=== PATIENT | male | born 1980 | race Caucasian/White ===

== ENCOUNTER 2020-11-22 18:23 | Outpatient (REF) | payer MEDICAID, SELFPAY ==
[2020-11-22 16:26] LABS: HCT 46.5 % (40.0-50.0); HGB 15.2 g/dL (13.5-17.5); MCH 28.9 pg (27.0-33.0); MCHC 32.7 % (32.0-36.0); MCV 88.4 fL (80-95); MPV 9.9 fL (8.0-11.0); Platelet Count 291 10^3/uL (130-400); RBC 5.26 10^6/uL (4.36-5.78); RDW 12.1 % (11.8-14.1); RDW-SD 39.3 fL; WBC 8.82 10^3/uL (4.4-10.8)
[2020-11-22 16:38] LABS: ALT 48 U/L (16-63); AST 20 U/L (15-37); Albumin 3.5 g/dL (3.4-5.0); Alkaline Phosphatase 86 U/L (46-116); Anion Gap 6.8 mmol/L (3-11); BUN 13 mg/dL (7-18); Bilirubin, Total 0.5 mg/dL (0.2-1.0); CO2 29.2 mmol/L (21.0-32.0); Calcium 9.3 mg/dL (8.5-10.1); Calculated LDL 149 mg/dL (<100); Chloride 102 mmol/L (98-107); Cholesterol 210 mg/dL (<200); Glucose 137 mg/dL (74-106); HDL Cholesterol 37 mg/dL (40-60); Potassium 4.3 mmol/L (3.5-5.1); Sodium 138 mmol/L (136-145); Total Protein 7.8 g/dL (6.4-8.2); Triglyceride 122 mg/dL (<150)
[2020-11-22 16:59] LABS: Hemoglobin A1C 6.1 % (<5.7)
== END 2020-11-22 18:24 | disposition home or self-care (01) ==
LOC: NCHCN 18:23
PROVIDERS: Visit Provider Physician Assistant
DX: I10 Essential (primary) hypertension (principal); R73.03 Prediabetes; E78.5 Hyperlipidemia, unspecified
CPT/HCPCS: 80053; 80061; 85027; 83036

== ENCOUNTER 2021-07-24 14:58 | Outpatient (REF) | payer MEDICAID, SELFPAY ==
[2021-07-24 19:28] LABS: Hemoglobin A1C 6.6 % (<5.7)
== END 2021-07-24 14:59 | disposition home or self-care (01) ==
LOC: NCHCN 14:58
PROVIDERS: Visit Provider Physician Assistant
DX: R73.03 Prediabetes (principal)
CPT/HCPCS: 83036

== ENCOUNTER → 2021-11-22 01:03 | Outpatient (CLI) | payer OTHER, SELFPAY ==
--- NOTE | 2021-11-22 12:30 | DI.RAD_ITS ---
Exam(s) XR HIP RT COMPLETE AP PELVIS EXAM: XR HIP RT COMPLETE AP PELVIS CLINICAL HISTORY: DISABILITY DETERMINATION, Z02.71;RT HIP PAIN; 2-3 VIEWS, [id number] TECHNIQUE: COMPARISON: No exams were available for comparison FINDINGS: Three views were obtained. There is mild narrowing of cartilaginous joint space of right and left hi p superiorly. There are mild changes of subchondral sclerosis and mild marginal osteophyte formation of the acetabula bilaterally. No other significant bony or soft tissue abnormality seen. IMPRESSION: Mild DJD both hips. The SI joints appear intact bilaterally. RADIATION DOSE DELIVERED: Total DLP
--- NOTE | 2021-11-22 12:30 | DI.RAD_ITS ---
Exam(s) XR LUMBAR SPINE AP, LAT EXAM: XR LUMBAR SPINE AP, LAT CLINICAL HISTORY: DISABILITY DETERMINATION, Z02.71; LBP; 2-3 VIEWS, [id number] TECHNIQUE: COMPARISON: No exams were available for comparison FINDINGS: Three views were obtained. The intervertebral disc spaces are well maintained. No significant bony abnormality seen. No evidence of spondylolysis or spondylolisthesis. IMPRESSION: Negative examination of the lumbar spine. RADIATION DOSE DELIVERED: Total DLP
== END ==
PROVIDERS: Visit Provider Pediatrics Pediatric Rheumatology
DX: M54.50 Low back pain, unspecified (principal); M16.0 Bilateral primary osteoarthritis of hip; Z02.71 Encounter for disability determination
CPT/HCPCS: 72100; 73502

== ENCOUNTER 2022-03-22 14:43 | Outpatient (REF) | payer MEDICAID, SELFPAY ==
[2022-03-22 19:55] LABS: ALT 48 U/L (16-63); AST 33 U/L (15-37); Albumin 3.7 g/dL (3.4-5.0); Alkaline Phosphatase 61 U/L (46-116); BUN 12 mg/dL (7-18); Bilirubin, Total 0.5 mg/dL (0.2-1.0); CREATININE 0.9 mg/dL (0.70-1.30); Calcium 9.4 mg/dL (8.5-10.1); Calculated LDL 86 mg/dL (<100); Chloride 101 mmol/L (98-107); Cholesterol 143 mg/dL (<200); Estimated GFR 109.36 (mL/min/1.73m2); Glucose 106 mg/dL (74-106); HDL Cholesterol 41 mg/dL (40-60); Sodium 138 mmol/L (136-145); Total Protein 8.5 g/dL (6.4-8.2); Triglyceride 81 mg/dL (<150)
[2022-03-23 22:38] LABS: Albumin ug/mg Crea 26 (<30); Albumin, Ur 6.2 mg/dL (See Note); Creatinine, Ur 239.1 mg/dL (See Note)
[2022-03-24 14:11] LABS: HIV-1/2 Ag & Ab Screen Negative (Negative)
[2022-03-25 09:28] LABS: Hepatitis C Ab w Rflx HCV PCR Negative (Negative)
== END 2022-03-22 14:44 | disposition home or self-care (01) ==
LOC: NCHCN 14:43
PROVIDERS: Visit Provider Physician Assistant
DX: E78.5 Hyperlipidemia, unspecified (principal); Z11.59 Encounter for screening for other viral diseases; E11.9 Type 2 diabetes mellitus without complications; Z11.4 Encounter for screening for human immunodeficiency virus [HIV]
CPT/HCPCS: 80053; 80061; 86803; 87389; 82043; 82570; 83036

== ENCOUNTER 2023-04-04 15:41 | Outpatient (REF) | payer SELFPAY ==
[2023-04-04 19:20] LABS: Microalb ug/mg Crea 61.5 ug/mg Cr
== END 2023-04-04 15:42 | disposition home or self-care (01) ==
LOC: NCHCN 15:41
PROVIDERS: Visit Provider Physician Assistant
DX: E11.9 Type 2 diabetes mellitus without complications (principal); E78.5 Hyperlipidemia, unspecified
CPT/HCPCS: 82043; 82570

== ENCOUNTER 2023-08-12 16:14 | Outpatient (REF) | payer BC, SELFPAY ==
[2023-08-12 16:03] LABS: Hemoglobin A1C 5.7 % (<5.7)
--- OUTSIDE RECORDS SUMMARY | 2023-08-12 16:25 | XMS_ITS | Continuity of Care Document ---
Author Name Unknown Organization [facility] Address [address] [place] [id number] Care Team Providers Care Geological Manager Name Role Phone JANESSA RITCHIE RPA Primary Care Physician Encounter [facility] [id number] Date(s): 04/23/23 - 04/23/23 [facility] [address] [place] [address]- Encounter Diagnosis Abscess of axillary region(Discharge Diagnosis) - 04/23/23 Discharge Disposition: Home or Self Care Attending Physician: Lita Granados MD Admitting Physician: Lita Granados MD Functional Status 04/23/23 Other exposure to Infectious Disease Non e Medications doxycycline hyclate 100 mg oral capsule 100 mg = 1 cap, Oral, BID, X 10 days, # 20 cap, 0 Refill(s), 05/03/23 1:58:00 PM CDT, Pharmacy: [facility] #[id number], 175.26, cm, 04/23/23 13:42:00 EDT, Height/Length Dosing, 154.22, kg, 04/23/23 13:42:00 EDT, Weight Dosing Start Date: 04/23/23 Stop Date: 05/03/23 Status: Ordered metFORMIN 500 mg oral tablet 0 Refill(s) Start Date: 04/23/23 Status: Ordered pregabalin 100 mg oral capsule 0 Refill(s) Start Date: 04/23/23 Status: Ordered rosuvastatin 10 mg oral tablet 0 Refill(s) Start Date: 04/23/23 Status: Ordered Results Orders for Microbiology Reports Name Date Wound Culture 04/23/23 Microbiology Reports TEST:Wound Culture STATUS:Order in Progress BODY SITE:Right Axilla SOURCE:Abscess COLLECTED DATE/TIME:04/23/23 1:24 PM STAIN REPORT Moderate White Blood Cells Moderate Gram Positive Cocci in pairs Vital Signs Most recent to oldest [Reference Range]: 1 Temperature Temporal Artery [36-38 Deg C ] 36.4 Deg C (04/23/23 1:26 PM) Peripheral Pulse Rate [60-100 bpm] 120 b pm *HI* (04/23/23 1:26 PM) Respiratory Rate [12-24 br/min] 20 br/mi n (04/23/23 1:26 PM) Blood Pressure [90-140/60-90 mmHg] 130/8 1mmHg (04/23/23 1:26 PM) Weight 154.22 kg (04/23/23 1:26 PM) Weight Dosing 154.22 kg (04/23/23 1:42 PM) Height 175.260 cm (04/23/23 1:26 PM) Height/Length Dosing 175.260 cm (04/23/23 1:42 PM) Body Mass Index 50.000 kg/m2 (04/23/23 1:26 PM) Social History Social History Type Response Tobacco Never tobacco user T obacco Use:. Sex Hospital Discharge Instructions Patient Education 04/23/2023 13:59:42 Incision and Drainage, Care After Incision and Drainage, Care After This sheet gives you information about how to care for yourself after your procedure. Your health care provider may also give you more specific instructions. If you have problems or questions, contact your health care provider. What can I expect after the procedure? After the procedure, it is common to have: ??? Pain or discomfort around the incision site. ??? Blood, fluid, or pus (drainage) from the incision. ??? Redness and firm skin around the incision site. Follow these instructions at home: Medicines ??? Take mjqu-lgm-fnofrfp and prescription medicines only as told by your health care provider. ??? If you were prescribed an antibiotic medicine, use or take it as told by your health care provider. Do not stop using the antibiotic even if you start to feel better. Wound care Follow instructions from your health care provider about how to take care of your wound. Make sure you: ??? Wash your hands with soap and water before and after you change your bandage (dressing). If soap and water are not available, use hand premium auditor. ??? Change your dressing and packing as told by your health care provider. ??? If your dressing is dry or stuck when you try to remove it, moisten or wet the dressing with saline or water so that it can be removed without harming your skin or tissues. ??? If your wound is packed, leave it in place until your health care provider tells you to remove it. To remove the packing, moisten or wet the packing with saline or water so that it can be removedwithout harming your skin or tissues. ??? Leave stitches (sutures), skin glue, or adhesive strips in place. These skin closures may need to stay in place for 2 weeks or longer. If adhesive strip edges start to loosen and curl up, you maytrim the loose edges. Do not remove adhesive strips completely unless your health care provider tells you to do that. Check your wound every day for signs of infection. Check for: ??? More redness, swelling, or pain. ??? More fluid or blood. ??? Warmth. ??? Pus or a bad smell. If you were sent home with a drain tube in place, follow instructions from your health care provider about: ??? How to empty it. ??? How to care for it at home. General instructions ??? Rest the affected area. ??? Do not take baths, swim, or use a hot tub until your health care provider approves. Ask your health care provider if you may take showers. You may only be allowed to take sponge baths. ??? Return to your normal activities as told by your health care provider. Ask your health care provider what activities are safe for you. Your health care provider may put you on activity or liftingrestrictions. ??? The incision will continue to drain. It is normal to have some clear or slightly bloody drainage. The amount of drainage should lessen each day. ??? Do not apply any creams, ointments, or liquids unless you have been told to by your health careprovider. ??? Keep all follow-up visits as told by your health care provider. This is important. Contact a health care provider if: ??? Your cyst or abscess returns. ??? You have more redness, swelling, or pain around your incision. ??? You have more fluid or blood coming from your incision. ??? Your incision feels warm to the touch. ??? You have pus or a bad smell coming from your incision. ??? You have red streaks above or below the incision site. Get help right away if: ??? You have severe pain or bleeding. ??? You cannot eat or drink without vomiting. ??? You have a fever or chills. ??? You have redness that spreads quickly. ??? You have decreased urine output. ??? You become short of breath. ??? You have chest pain. ??? You cough up blood. ??? The affected area becomes numb or starts to tingle. These symptoms may represent a serious problem that is an emergency. Do not wait to see if the symptoms will go away. Get medical help right away. Call your local emergency services (911 in the [place] Do not drive yourself to the hospital. Summary ??? After this procedure, it is common to have fluid, blood, or pus coming from the surgery site. ??? Follow all home care instructions. You will be told how to take care of your incision, how to check for infection, and how to take medicines. ??? If you were prescribed an antibiotic medicine, take it as told by your health care provider. Donot stop taking the antibiotic even if you start to feel better. ??? Contact a health care provider if you have increased redness, swelling, or pain around your incision. Get help right away if you have chest pain, you vomit, you cough up blood, or you have shortness of breath. ??? Keep all follow-up visits as told by your health care provider. This is important. This information is not intended to replace advice given to you by your health care provider. Make sure you discuss any questions you have with your health care provider. Document Revised: 04/11/2022 Document Reviewed: 04/11/2022 [employer] Patient Education ?? 2022 [employer] 04/23/2023 13:59:40 Skin Abscess Skin Abscess A skin abscess is an infected area on or under your skin that contains a collection of pus and other material. An abscess may also be called a furuncle, carbuncle, or boil. An abscess can occur in oron almost any part of your body. Some abscesses break open (rupture) on their own. Most continue to get worse unless they are treated. The infection can spread deeper into the body and eventually into your blood, which can make you feel ill. Treatment usually involves draining the abscess. What are the causes? An abscess occurs when germs, like bacteria, pass through your skin and cause an infection. This may be caused by: ??? A scrape or cut on your skin. ??? A puncture wound through your skin, including a needle injection or insect bite. ??? Blocked oil or sweat glands. ??? Blocked and infected hair follicles. ??? A cyst that forms beneath your skin (sebaceous cyst) and becomes infected. What increases the risk? This condition is more likely to develop in people who: ??? Have a weak body defense system (immune system). ??? Have diabetes. ??? Have dry and irritated skin. ??? Get frequent injections or use illegal IV drugs. ??? Have a foreign body in a wound, such as a splinter. ??? Have problems with their lymph system or veins. What are the signs or symptoms? Symptoms of this condition include: ??? A painful, firm bump under the skin. ??? A bump with pus at the top. This may break through the skin and drain. Other symptoms include: ??? Redness surrounding the abscess site. ??? Warmth. ??? Swelling of the lymph nodes (glands) near the abscess. ??? Tenderness. ??? A sore on the skin. How is this diagnosed? This condition may be diagnosed based on: ??? A physical exam. ??? Your medical history. ??? A sample of pus. This may be used to find out what is causing the infection. ??? Blood tests. ??? Imaging tests, such as an ultrasound, CT scan, or MRI. How is this treated? A small abscess that drains on its own may not need treatment. Treatment for larger abscesses may include: ??? Moist heat or heat pack applied to the area several times a day. ??? A procedure to drain the abscess (incision and drainage). ??? Antibiotic medicines. For a severe abscess, you may first get antibiotics through an IV and then change to antibiotics by mouth. Follow these instructions at home: Medicines ??? Take tojj-yjf-mvjqhpp and prescription medicines only as told by your health care provider. ??? If you were prescribed an antibiotic medicine, take it as told by your health care provider. Donot stop taking the antibiotic even if you start to feel better. Abscess care ??? If you have an abscess that has not drained, apply heat to the affected area. Use the heat source that your health care provider recommends, such as a moist heat pack or a heating pad. ??? Place a towel between your skin and the heat source. ??? Leave the heat on for 20???30 minutes. ??? Remove the heat if your skin turns bright red. This is especially important if you are unable to feel pain, heat, or cold. You may have a greater risk of getting burned. ??? Follow instructions from your health care provider about how to take care of your abscess. Makesure you: ??? Cover the abscess with a bandage (dressing). ??? Change your dressing or gauze as told by your health care provider. ??? Wash your hands with soap and water before you change the dressing or gauze. If soap and water are not available, use hand premium auditor. ??? Check your abscess every day for signs of a worsening infection. Check for: ??? More redness, swelling, or pain. ??? More fluid or blood. ??? Warmth. ??? More pus or a bad smell. General instructions ??? To avoid spreading the infection: ??? Do not share personal care items, towels, or hot tubs with others. ??? Avoid making skin contact with other people. ??? Keep all follow-up visits as told by your health care provider. This is important. Contact a health care provider if you have: ??? More redness, swelling, or pain around your abscess. ??? More fluid or blood coming from your abscess. ??? Warm skin around your abscess. ??? More pus or a bad smell coming from your abscess. ??? Muscle aches. ??? Chills or a general ill feeling. Get help right away if you: ??? Have severe pain. ??? See red streaks on your skin spreading away from the abscess. ??? See redness that spreads quickly. ??? Have a fever or chills. Summary ??? A skin abscess is an infected area on or under your skin that contains a collection of pus and other material. ??? A small abscess that drains on its own may not need treatment. ??? Treatment for larger abscesses may include having a procedure to drain the abscess and taking an antibiotic. This information is not intended to replace advice given to you by your health care provider. Make sure you discuss any questions you have with your health care provider. Document Revised: 04/08/2022 Document Reviewed: 04/08/2022 [employer] Patient Education ?? 2022 [employer]. Follow Up Care 04/23/2023 13:26:39 With:Tylenol/Motrin for Pain/Fever Relief Address:Unknown When:1 month With:JANESSA RITCHIE RPA Address: [address] [place] [phone] When:1 month Physician Emergency department Note * FLORENCIA Murphy: PERFORM Event Display: ED Note Physician Authored Date: [id number] HENRY GALLARDO :1980 Age:42 years Sex:Male Visit Date:04/23/2023 Primary Care Physician: JANESSA RITCHIE RPA Basic Information Time Seen: FLORENCIA Murphy / 04/23/2023 13:40 Chief Complaint Pt C/O abscess under RIGHT armpit. Started a few days ago, just getting bigger despite home remedies. No hx of abscesses. History Of Present Illness: Patient is a 42-year-old diabetic here for concern of a painful??lesion??of the right axilla. ??States he first noticed this 3 days ago and appeared to be an ingrown hair however since then it has increased in size??and has become more painful. ??There has been no??discharge from the area. ??He hasbeen afebrile.?? States that he had a pilonidal??abscess previously but no other axillary or inguinal??abscesses. Review of Systems: See HPI Physical Exam Vitals & Measurements T:??36.4?C ??(Temporal Artery)?? HR:??120??(Peripheral)?? RR:??20?? BP:??130/81?? SpO2:??96%?? HT:??175.260??cm?? WT:??154.22??kg?? BMI:??50.000?? O2 Therapy:??Room air?? General: Awake, alert and oriented. No acute distress. Well developed, hydrated and nourished. Appears stated age. Head: The head is normocephalic and atraumatic,?? Skin: Skin is warm, dry. There is a??3 cm oblong area fluctuance surrounded by a 6 cm??area of induration. ??Area is tender to palpation. ??No discharge expressed. ??No streaking.?? No tunneling or surrounding comedones present. Cardiac: The external chest is normal in appearance.?? Regular??rate. Respiratory:??Still without??deformity.?? No signs of respiratory distress. ??Regular rate. Medical Decision Making: Patient is a pleasant 42-year-old male here with concern of a right axillary abscess. ??Vitals obtained and reviewed. ??He is afebrile. ??On exam there is a single??abscesses present.?? Moderate areaof fluctuance with surrounding induration as described above. Abscess was I&D??as described. ??Patient tolerated the procedure well. ??Culture was??sent. Will??start empirically on doxycycline and wound care discussed. Procedure Procedure Name: Abscess I&D Locations: Right axilla PROCEDURE: The appropriate timeout was taken. The area was prepped??and draped.?? Local anesthesia was achieved using 5 cc of ??Lidocaine 2% without epinephrine. ??A small incision was made??at the center of the abscess with area of??most??fluctuance. ??A moderate amount of purulent discharge was expressed.?Approximately??4 cc.?? Ultras were obtained.?? Loculations??were taken down with??forceps. ??It??incision irrigated with??40 cc??of sterile saline. Estimated blood loss was less than??3 mL. A dressing was applied to the area and anticipatory guidance, as well as standard post-procedure care, was explained. Return precautions are given. The patient tolerated the procedure well without complications. Follow-up visit set for suture removal and evaluation of the laceration. No Qualifying Data Assessment/Plan 1.??Abscess of axillary region??L02.419 Will??start empirically on doxycycline and wound care discussed. ??Will monitor for any worsening of the surrounding cellulitis and return??to the emergency department with any concerns. Wound cultures pending. Ordered: Wound Culture, Abscess, Axilla R, Stat collect, ST - Stat, 04/23/23 15:36:00 EDT, Once, Nurse collect, Abscess of axillary region, Print Label ?? Orders: doxycycline hyclate 100 mg oral capsule, 100 mg = 1 cap, Oral, BID, X 10 days, # 20 cap, 0 Refill(s), 05/03/23 14:58:00 EDT, Pharmacy: [facility] #[id number], 175.26, cm, 04/23/23 13:42:00 EDT, Height/Length Dosing, 154.22, kg, 04/23/23 13:42:00 EDT, Weight Dosing Patient Education Incision and Drainage, Care After Skin Abscess Follow Up With When Contact Information Tylenol/Motrin for Pain/Fever Relief Within 1 month Additional Instructions: JANESSA RITCHIE RPA Within [address] [place] [phone] [phone] Additional Instructions: Medication Reconciliation New Prescription doxycycline (doxycycline hyclate 100 mg oral capsule)1 Capsules Oral (given by mouth) 2 times a dayfor 10 Days. Refills: 0. ?? Unchanged metFORMIN (metFORMIN 500 mg oral tablet) ?? pregabalin (pregabalin 100 mg oral capsule) ?? rosuvastatin (rosuvastatin 10 mg oral tablet) Problem List/Past Medical History Ongoing Morbid obesity Historical No qualifying data Allergies No active allergies Social History Electronic Cigarette/Vaping Electronic Cigarette Use: Never. Tobacco Never tobacco user Tobacco Use:. Electronically Signed on 04/23/23 04:52 PM FLORENCIA Murphy Emergency department Discharge instructions * FLORENCIA Murphy: PERFORM Event Display: ED Discharge Information Authored Date: [id number] HENRY GALLARDO:1980 Age:42 years Sex:Male Visit Date:04/23/2023 Primary Care Physician: JANESSA RITCHIE RPA Discharge Instructions We would like to thank you for allowing us to assist you with your healthcare needs. The following includes patient education materials and information regarding your injury/illness. Diagnosis from Today's Visit Abscess of axillary region Discharge Vitals Temperature??(Temporal Artery) 97.5 ??F (36.4 ??C) Heart Rate??(Peripheral) 120 Respiratory Rate?? 20 Blood Pressure?? 130/81?? Height?? 69.00 in (175.260 cm) Weight?? 340.06 lb (154.22 kg) BMI?? 50.000 Allergies No active allergies What to Do Next Instructions from Your Care Team Please continue with wound care as discussed. ??Keep the dressing on for 24 hours and then can replace with a bulky dressing thereafter.?? There is no wick in place so it will heal??from the inside??out. ??Please continue to monitor with taking pictures of the area daily if you note any recurrence of the abscess or worsening of the rash or pain in the area please return.?? I sent in a prescription of doxycycline??please take that twice a day for the next 10 days. ??Follow-up with PCP as needed. You Need to Schedule the Following Appointments Follow Up with??Tylenol/Motrin for Pain/Fever Relief When:??Within 1 month Follow Up with??JANESSA RITCHIE RPA When:??Within 1 month Where: [address] [place] [phone] You were treated today on an emergency basis; it may be esquivel to contact your primary care provider to notify them of your visit today. You may have been referred to your regular doctor or a specialist, please follow up as instructed. If your condition worsens or you can't get in to see the doctor, contact the Emergency Department. Medications What How Much When Instructions Next Dose New doxycycline (doxycycline hyclate 100 mg oral capsule) 1 Capsules Oral (given by mouth) 2 times a day Duration: 10 Days Pickup at [facility] #[id number] Unchanged metFORMIN (metFORMIN 500 mg oral tablet) Unchanged pregabalin (pregabalin 100 mg oral capsule) Unchanged rosuvastatin (rosuvastatin 10 mg oral tablet) Pharmacy Information [facility] #[id number]: [address] [place], [place] [phone] [employer] Incision and Drainage, Care After This sheet gives you information about how to care for yourself after your procedure. Your health care provider may also give you more specific instructions. If you have problems or questions, contact your health care provider. What can I expect after the procedure? After the procedure, it is common to have: ? Pain or discomfort around the incision site. ? Blood, fluid, or pus (drainage) from the incision. ? Redness and firm skin around the incision site. Follow these instructions at home: Medicines ? Take ublq-zva-jyuzsfc and prescription medicines only as told by your health care provider. ? If you were prescribed an antibiotic medicine, use or take it as told by your health care provider.Do not stop using the antibiotic even if you start to feel better. Wound care Follow instructions from your health care provider about how to take care of your wound. Make sure you: ? Wash your hands with soap and water before and after you change your bandage (dressing). If soap and water are not available, use hand premium auditor. ? Change your dressing and packing as told by your health care provider. ? If your dressing is dry or stuck when you try to remove it, moisten or wet the dressing with salineor water so that it can be removed without harming your skin or tissues. ? If your wound is packed, leave it in place until your health care provider tells you to remove it. To remove the packing, moisten or wet the packing with saline or water so that it can be removed without harming your skin or tissues. ? Leave stitches (sutures), skin glue, or adhesive strips in place. These skin closures may need to stay in place for 2 weeks or longer. If adhesive strip edges start to loosen and curl up, you may trim the loose edges. Do not remove adhesive strips completely unless your health care provider tells you to do that. Check your wound every day for signs of infection. Check for: ? More redness, swelling, or pain. ? More fluid or blood. ? Warmth. ? Pus or a bad smell. If you were sent home with a drain tube in place, follow instructions from your health care provider about: ? How to empty it. ? How to care for it at home. General instructions ? Rest the affected area. ? Do not take baths, swim, or use a hot tub until your health care provider approves. Ask your healthcare provider if you may take showers. You may only be allowed to take sponge baths. ? Return to your normal activities as told by your health care provider. Ask your health care provider what activities are safe for you. Your health care provider may put you on activity or lifting restrictions. ? The incision will continue to drain. It is normal to have some clear or slightly bloody drainage. The amount of drainage should lessen each day. ? Do not apply any creams, ointments, or liquids unless you have been told to by your health care provider. ? Keep all follow-up visits as told by your health care provider. This is important. Contact a health care provider if: ? Your cyst or abscess returns. ? You have more redness, swelling, or pain around your incision. ? You have more fluid or blood coming from your incision. ? Your incision feels warm to the touch. ? You have pus or a bad smell coming from your incision. ? You have red streaks above or below the incision site. Get help right away if: ? You have severe pain or bleeding. ? You cannot eat or drink without vomiting. ? You have a fever or chills. ? You have redness that spreads quickly. ? You have decreased urine output. ? You become short of breath. ? You have chest pain. ? You cough up blood. ? The affected area becomes numb or starts to tingle. These symptoms may represent a serious problem that is an emergency. Do not wait to see if the symptoms will go away. Get medical help right away. Call your local emergency services (911 in the [place] Do not drive yourself to the hospital. Summary ? After this procedure, it is common to have fluid, blood, or pus coming from the surgery site. ? Follow all home care instructions. You will be told how to take care of your incision, how to checkfor infection, and how to take medicines. ? If you were prescribed an antibiotic medicine, take it as told by your health care provider. Do notstop taking the antibiotic even if you start to feel better. ? Contact a health care provider if you have increased redness, swelling, or pain around your incision. Get help right away if you have chest pain, you vomit, you cough up blood, or you have shortness of breath. ? Keep all follow-up visits as told by your health care provider. This is important. This information is not intended to replace advice given to you by your health care provider. Make sure you discuss any questions you have with your health care provider. Document Revised: 04/11/2022 Document Reviewed: 04/11/2022 [employer] Patient Education ?? 2022 [employer] Skin Abscess A skin abscess is an infected area on or under your skin that contains a collection of pus and other material. An abscess may also be called a furuncle, carbuncle, or boil. An abscess can occur in oron almost any part of your body. Some abscesses break open (rupture) on their own. Most continue to get worse unless they are treated. The infection can spread deeper into the body and eventually into your blood, which can make you feel ill. Treatment usually involves draining the abscess. What are the causes? An abscess occurs when germs, like bacteria, pass through your skin and cause an infection. This may be caused by: ? A scrape or cut on your skin. ? A puncture wound through your skin, including a needle injection or insect bite. ? Blocked oil or sweat glands. ? Blocked and infected hair follicles. ? A cyst that forms beneath your skin (sebaceous cyst) and becomes infected. What increases the risk? This condition is more likely to develop in people who: ? Have a weak body defense system (immune system). ? Have diabetes. ? Have dry and irritated skin. ? Get frequent injections or use illegal IV drugs. ? Have a foreign body in a wound, such as a splinter. ? Have problems with their lymph system or veins. What are the signs or symptoms? Symptoms of this condition include: ? A painful, firm bump under the skin. ? A bump with pus at the top. This may break through the skin and drain. Other symptoms include: ? Redness surrounding the abscess site. ? Warmth. ? Swelling of the lymph nodes (glands) near the abscess. ? Tenderness. ? A sore on the skin. How is this diagnosed? This condition may be diagnosed based on: ? A physical exam. ? Your medical history. ? A sample of pus. This may be used to find out what is causing the infection. ? Blood tests. ? Imaging tests, such as an ultrasound, CT scan, or MRI. How is this treated? A small abscess that drains on its own may not need treatment. Treatment for larger abscesses may include: ? Moist heat or heat pack applied to the area several times a day. ? A procedure to drain the abscess (incision and drainage). ? Antibiotic medicines. For a severe abscess, you may first get antibiotics through an IV and then change to antibiotics by mouth. Follow these instructions at home: Medicines ? Take [id number]-mapster and prescription medicines only as told by your health care provider. ? If you were prescribed an antibiotic medicine, take it as told by your health care provider. Do notstop taking the antibiotic even if you start to feel better. Abscess care ? If you have an abscess that has not drained, apply heat to the affected area. Use the heat source that your health care provider recommends, such as a moist heat pack or a heating pad. ? Place a towel between your skin and the heat source. ? Leave the heat on for 20???30 minutes. ? Remove the heat if your skin turns bright red. This is especially important if you are unable to feel pain, heat, or cold. You may have a greater risk of getting burned. ? Follow instructions from your health care provider about how to take care of your abscess. Make sure you: ? Cover the abscess with a bandage (dressing). ? Change your dressing or gauze as told by your health care provider. ? Wash your hands with soap and water before you change the dressing or gauze. If soap and water are not available, use hand premium auditor. ? Check your abscess every day for signs of a worsening infection. Check for: ? More redness, swelling, or pain. ? More fluid or blood. ? Warmth. ? More pus or a bad smell. General instructions ? To avoid spreading the infection: ? Do not share personal care items, towels, or hot tubs with others. ? Avoid making skin contact with other people. ? Keep all follow-up visits as told by your health care provider. This is important. Contact a health care provider if you have: ? More redness, swelling, or pain around your abscess. ? More fluid or blood coming from your abscess. ? Warm skin around your abscess. ? More pus or a bad smell coming from your abscess. ? Muscle aches. ? Chills or a general ill feeling. Get help right away if you: ? Have severe pain. ? See red streaks on your skin spreading away from the abscess. ? See redness that spreads quickly. ? Have a fever or chills. Summary ? A skin abscess is an infected area on or under your skin that contains a collection of pus and other material. ? A small abscess that drains on its own may not need treatment. ? Treatment for larger abscesses may include having a procedure to drain the abscess and taking an antibiotic. This information is not intended to replace advice given to you by your health care provider. Make sure you discuss any questions you have with your health care provider. Document Revised: 04/08/2022 Document Reviewed: 04/08/2022 Elsevier Patient Education ?? 2022 [employer] Patient/Anchor Operator Signature Patient Name:HENRY GALLARDO I have received this information and my questions have been answered. Patient/Anchor Operator Name: Patient/Anchor Operator Signature: Relationship to Patient: Witness Name/Signature: Date: Electronically Signed on: 04/23/2023 15:01 EDTSigned by:LOLITA Patient Care team information Care Team Personnel Name: JANESSA RITCHIE RPA Position: No Access Member Role: Primary Care Physician Address: Address: [address] [place], [place] [address] Name: FLORENCIA Murphy Position: Physician Member Role: Physician Address: Address: [address], [place] [address] Name: Amilcar Merino Position: Nurse Member Role: ED Nurse Care Team Related Persons Name: GALLITO SMYTH
[2023-08-12 16:45] LABS: ALT 31 U/L (16-63); AST 19 U/L (15-37); Albumin 3.9 g/dL (3.4-5.0); Alkaline Phosphatase 80 U/L (46-116); Anion Gap 9.4 mmol/L (3-11); BUN 14 mg/dL (7-18); Bilirubin, Total 0.5 mg/dL (0.2-1.0); CO2 28.6 mmol/L (21.0-32.0); CREATININE 0.9 mg/dL (0.70-1.30); Calculated LDL 187 mg/dL (<100); Chloride 103 mmol/L (98-107); Cholesterol 258 mg/dL (<200); Estimated GFR 108.01 (mL/min/1.73m2); Glucose 94 mg/dL (74-106); HDL Cholesterol 47 mg/dL (40-60); Potassium 3.8 mmol/L (3.5-5.1); Sodium 141 mmol/L (136-145); Total Protein 8.2 g/dL (6.4-8.2); Triglyceride 121 mg/dL (<150)
== END 2023-08-12 16:15 | disposition home or self-care (01) ==
LOC: NCHCN 16:14
PROVIDERS: PCP Physician Assistant; Visit Provider Physician Assistant
DX: I10 Essential (primary) hypertension (principal); E78.5 Hyperlipidemia, unspecified; E11.9 Type 2 diabetes mellitus without complications
CPT/HCPCS: 80053; 80061; 83036

== ENCOUNTER 2024-09-14 14:25 | Outpatient (REF) | payer OTHER, SELFPAY ==
[2024-09-14 15:31] LABS: Hemoglobin A1C 6.1 % (<5.7)
[2024-09-14 15:35] LABS: ALT 36 U/L (16-63); AST 21 U/L (15-37); Albumin 3.7 g/dL (3.4-5.0); Alkaline Phosphatase 69 U/L (46-116); Anion Gap 5.3 mmol/L (3-11); BUN 27 mg/dL (7-18); Bilirubin, Total 0.28 mg/dL (0.2-1.0); CO2 29.7 mmol/L (21.0-32.0); CREATININE 1.1 mg/dL (0.70-1.30); Calcium 9.4 mg/dL (8.5-10.1); Calculated LDL 86 mg/dL (<100); Chloride 108 mmol/L (98-107); Cholesterol 143 mg/dL (<200); Estimated GFR 84.37 (mL/min/1.73m2); Glucose 93 mg/dL (74-106); HDL Cholesterol 43 mg/dL (>or=40); Sodium 143 mmol/L (136-145); Total Protein 7.5 g/dL (6.4-8.2); Triglyceride 71 mg/dL (<150)
[2024-09-14 15:47] LABS: COMMENT (LAB VIEW ONLY) 87.28 mg/dL; Microalb ug/mg Crea 14.3 ug/mg Cr
== END 2024-09-14 14:26 | disposition home or self-care (01) ==
LOC: NCHCN 14:25
PROVIDERS: PCP Physician Assistant; Visit Provider Physician Assistant
DX: E78.5 Hyperlipidemia, unspecified (principal); E11.9 Type 2 diabetes mellitus without complications
CPT/HCPCS: 80053; 80061; 82043; 82570; 83036

== ENCOUNTER 2024-10-24 13:48 | Observation (INO) | payer OTHER, SELFPAY ==
[2024-10-24] VITALS (9 sets, daily range): BP systolic 92–118; BP diastolic 46–76; PULSE 63–112; RESP 15–20; TEMP 35.4–36.7; O2SAT 96–100
--- NOTE | 2024-10-24 14:00 | DI.RAD_ITS ---
Exam(s) XR CHEST 2V PA LATERAL EXAM: XR CHEST 2V PA LATERAL CLINICAL HISTORY: Chest pain. TECHNIQUE: 2D digital imaging was performed. COMPARISON: No exams were available for comparison FINDINGS: 2 views: Heart size is normal. The mediastinum is not widened. Right lung is clear. Slightly increased markings in the left lower lobe which either represent vascu lar crowding or mild infiltrate. Less evident on the lateral view. No pleural effusions. No pulmon calderon edema. IMPRESSION: Left lower lobe findings as above, probably vascular crowding but cannot exclude mild infiltrate. Th ere are no pleural effusions. DATA REPOSITORY: RADIATION DOSE DELIVERED:
--- NOTE | 2024-10-24 14:00 | RT.EKG_ITS ---
APPROVED REPORT Exam: Resting ECG Reason for Exam: Chest pain Patient Location: E HR:97 bpm ECG Measurements Heart Rate 97 AXIS RI 160 P 42 QRSd 92 QRS 10 QT 338 T 35 QTc 431 Conclusion Sinus rhythm...normal P axis, V-rate 60- 99
--- NOTE | 2024-10-24 14:03 | W.ED.GENAD ---
Discharge Plan Disposition Patient Disposition: Admit to [facility] Condition: Stable Discharge Details Chief Complaint: Nk/Back Pain Clinical Impression: Acute kidney injury, Neck pain, Shoulder pain, bilateral, Dizziness Primary Care Provider: Rashaad London ED Provider: Ascencion Easley Home Meds and New Rx's Prescriptions: No Action sertraline 100 mg tablet 100 mg PO DAILY Patient Comments: TAKE 1 TABLET BY MOUTH EVERY DAY lisinopril 10 mg tablet 10 mg PO DAILY Patient Comments: TAKE 1 TABLET BY MOUTH EVERY DAY rosuvastatin 10 mg tablet 10 mg PO DAILY Patient Comments: TAKE 1 TABLET BY MOUTH EVERY DAY pregabalin 150 mg capsule 150 mg PO BID Patient Comments: TAKE 1 CAPSULE BY MOUTH TWICE DAILY Discharge Instructions Referrals: Rashaad London [Primary Care Provider] - 1 week HPI General Mode of arrival: ambulatory. Date/Time Provider Initiated Documentation: 10/24/24 13:51. Limitations to Documentation: no limitations. Information obtained by: family. HPI Narrative: This is a 44-year-old male history of diabetes, hypertension, hyperlipidemia, depression/anxiety, morbid obesity who is presenting with neck and shoulder pain. He has had neck and shoulder pain for the last few weeks. Worse with movement. Sometimes feels that shooting down into his shoulders. No reported trauma or injuries that he is aware of. No fevers or chills. No recent surgeries or procedures or instrumentation. No numbness tingling or weakness in the extremities. No bowel or bladder incontinence or retention. Over the last 2 to 3 days with this pain he has been getting associated dizziness. Has been consistently dizzy over this time. Still with this dizziness. He has no chest pain or shortness of breath. No abdominal pain nausea or vomiting. Says that he is taking medications for his blood pressure and hyperlipidemia as well as his depression anxiety but cannot name these medications for me. Says that he was taking metformin but it was not working and he is not taking it anymore. His primary care doctor tried to prescribe him Mounjaro but apparently his insurance would not cover it. Related Data Home Medications ?Medication ?Instructions ?Recorded ?Confirmed lisinopril 10 mg tablet 10 mg PO DAILY 10/24/24 10/24/24 pregabalin 150 mg capsule 150 mg PO BID 10/24/24 10/24/24 rosuvastatin 10 mg tablet 10 mg PO DAILY 10/24/24 10/24/24 sertraline 100 mg tablet 100 mg PO DAILY 10/24/24 10/24/24 Allergies Allergy/AdvReac Type Severity Reaction Status Date / Time No Known Allergies Allergy Unverified 10/24/24 13:58 General Stated Complaint: Nk/Back Pain RYAN: 3 Review of Systems Constitutional Constitutional: Denies chills, Denies fever(s) and Denies headache(s) Eyes Eyes: Denies change in vision ENT Ears, Nose, Mouth, and Throat: Denies headache(s), Reports neck pain and Denies odynophagia Cardiovascular Cardiovascular: Denies chest pain and Denies dyspnea Respiratory Respiratory: Denies dyspnea Gastrointestinal Gastrointestinal: Denies abdominal pain, Denies diarrhea, Denies nausea, Denies odynophagia and Denies vomiting Genitourinary Genitourinary: Denies dysuria Musculoskeletal Musculoskeletal: Reports neck pain Comments: Bilateral shoulder pain but right greater than left Integumentary/Breasts Skin/Breast: Denies changing lesions Neurologic Neurologic: Denies behavioral changes and Denies headache(s) Psychiatric Psychiatric: Denies behavioral changes Endocrine Endocrine: Denies heat intolerance Hematologic/Lymphatic Hematologic/Lymphatic: Denies lymphadenopathy Exam Const General: cooperative Nutritional Appearance: average body habitus Orientation: alert, awake and oriented x3 HENMT Head: normal to inspection Ears: external ears normal Mouth: moist mucous membranes Eyes Pupils: PERRL EOM: EOM intact bilaterally and No nystagmus Neck Neck: full ROM and no tracheal deviation Chest Chest: normal inspection of the chest Resp Auscultation: clear to auscultation bilaterally Cardio Rate: regular rate Rhythm: regular rhythm GI Inspection: normal to inspection Palpation: soft, no guarding, not rigid and nontender Back/Spine/Pelvis Back: No no CVA tenderness Cervical Spine: No cervical spinal tenderness Thoracic/Lumbar Spine: thoracic and lumbar spine normal to inspection, No thoracic spinal tenderness and No lumbar spinal tenderness Other: Full range of motion of the neck but does have pain with ranging the neck. No deformity or step-off noted on palpation. No midline tenderness. Pain primarily in the paraspinal muscles of the neck. Skin General skin exam: no rashes or lesions noted Neuro General: patient alert, patient awake and patient oriented x3 Cranial Nerves: CN's II-XI intact bilaterally, PERRL and no nystagmus Cognition: normal cognition Motor: muscle tone normal throughout and strength 5/5 throughout Sensory Exam: no sensory deficits noted Extrem General: normal to inspection, full ROM and capillary refill normal Other: Sensation and motor intact to the radial, ulnar, and median nerve distributions bilaterally. Palpable radial and ulnar pulses bilaterally. Compartments of the bilateral upper extremities are soft. Full range of motion of all joints of the bilateral upper extremities with no limitations. No obvious deformity and no tenderness to the extremities. Course Vital Signs Vital signs: Vital Signs Temperature 35.4 C L 10/24/24 13:53 Pulse 112 H 10/24/24 13:53 Respiratory Rate 20 10/24/24 13:53 Blood Pressure 103/49 L 10/24/24 13:53 Pulse Oximetry 100 10/24/24 13:53 Temperature 35.4 C L 10/24/24 13:53 Pulse 112 H 10/24/24 13:53 Respiratory Rate 20 10/24/24 13:53 Blood Pressure 103/49 L 10/24/24 13:53 Blood Pressure Position Sitting 10/24/24 13:53 Pulse Oximetry 100 10/24/24 13:53 Oxygen Delivery Method Room Air 10/24/24 13:53 Oxygen Flow Rate 0 10/24/24 13:53 Medical Decision Making 44-year-old male history of diabetes, hypertension, hyperlipidemia, morbid obesity, anxiety/depression who is now presenting with neck and shoulder pain. Likely musculoskeletal neck pain. No red flag symptoms for cord compression or spinal epidural abscess so no role for emergent MRI. No history of trauma warranting advanced imaging otherwise. Doubt arrhythmia or acute coronary syndrome but will check EKG and cardiac enzymes though if unremarkable we will not pursue the diagnosis further. Will get chest x-ray to look for pneumonia or pneumothorax. Will get broad labs to look for electrolyte or metabolic derangements that could be contributing. Will treat for musculoskeletal neck pain while awaiting initial testing and reevaluate. 4pm EKG sinus rhythm with no ischemic changes. Chest x-ray unremarkable. CBC unremarkable. Comprehensive metabolic panel showing a elevated creatinine and BUN. No hyperkalemia. No pulmonary edema on exam. Certainly no need for emergent dialysis. Unclear etiology for this patient's worsening renal function now with creatinine up to 4.3 and baseline at around 1.1 and labs with normal renal function almost exactly 1 month ago. He is on lisinopril which could be contributing. Considered urinary retention but bladder scan with postvoid residual was unremarkable. Added on CK. Added on additional urine studies. Do not think it represents UTI as he does not have any dysuria or frequency. Ultimately will need further evaluation for this acute kidney injury and worsening in his renal function. Spoke to Dr. Satinder Hernandez with the hospitalist team who is agreeable to admission. Care transitioned to the hospitalist team. Medical Records Medical records reviewed: Yes I reviewed the patient's medical records. Imaging Data Radiologic Study: Attestation: I personally reviewed and interpreted this imaging study as follows: Imaging: X-Ray (chest) My impression: Unremarkable Lab Data Lab results reviewed: Yes I reviewed the patient's lab results. Lab results narrative: Acute kidney injury. No hyperkalemia. No acidosis. Labs: Elevated creatinine. BUN also elevated. No hyperkalemia. No acidosis. ECG Data Attestation: I personally reviewed and interpreted this ECG (s) as follows: Interpretation: Sinus rhythm with rate in the 60s. Normal axis. Normal TN interval. No ST or T wave changes. Otherwise unremarkable EKG. Quality:SDOH Health Related Social Needs: No Data to Display PFSH All Active Problems (Updated 10/24/24 @ 15:09 by Ascencion Easley MD) Shoulder pain, bilateral (Acute) Neck pain (Acute) Social History Smoking risk assessment performed?: No PAWSS Have you Been Recently Intoxicated or Drunk Within the Last 30 days?: No Have you Ever Experienced Previous Episodes of Alcohol Withdrawal?: No Have you ever Experienced Withdrawal Seizures?: No Have you ever Experienced Delirium Tremens(DT)s?: No Have you ever undergone Alcohol Rehabilitation Treatment (i.e, inpt ot outpatient treatment programs)?: No Have you ever Experienced Blackouts?: No Have you ever Combined Alcohol with other Downers within the last 90 days?: No Have you ever Combined Alcohol with any other Substance of Abuse during the last 90 days?: No Positive Blood Alcohol level on Presentation? [PCS.BAL]: No Evidence of Increased Autonomic Activity (i.e. HR>120, tremor, sweating, agitation, nausea)?: No Result: 0
[2024-10-24] MEDS: Ketorolac 30 MG/ML VIAL IVP (14:34)
[2024-10-24] MEDS: Cyclobenzaprine 10 MG TAB PO (14:34)
[2024-10-24 14:39] LABS: Abs Immature Grans 0.04 10^3/uL (0.0-0.06); Absolute Eosinophil Count 0.09 10^3/uL (0.0-0.7); Absolute Lymphocyte Count 2.73 10^3/uL (1.2-3.4); Absolute Monocyte Count 0.87 10^3/uL (0.1-0.8); Basophils % 0.5 %; Eosinophils % 0.8 %; HCT 43.7 % (40.0-50.0); HGB 14.2 g/dL (13.5-17.5); Immature Grans % 0.4 %; Lymphocytes % 24.8 %; MCHC 32.5 % (32.0-36.0); MCV 89 fL (80-95); MPV 10.4 fL (8.0-11.0); Monocytes % 7.9 %; Neutrophils % 65.6 %; Platelet Count 248 10^3/uL (130-400); RBC 4.89 10^6/uL (4.36-5.78); RDW 13.4 % (11.8-14.1); RDW-SD 43.5 fL; WBC 11.02 10^3/uL (4.4-10.8)
[2024-10-24 14:40] LABS: Absolute Basophil Count 0.06 10^3/uL (0.0-0.2); Absolute Neutrophil Count 7.23 10^3/uL (1.2-6.7)
[2024-10-24 15:10] LABS: ALT 47 U/L (16-63); AST 54 U/L (15-37); Alkaline Phosphatase 73 U/L (46-116); Anion Gap 12.6 mmol/L (3-11); BUN 67 mg/dL (7-18); Bilirubin, Total 0.8 mg/dL (0.2-1.0); CO2 26.4 mmol/L (21.0-32.0); Calcium 9.1 mg/dL (8.5-10.1); Chloride 99 mmol/L (98-107); Estimated GFR 16.43 (mL/min/1.73m2); Glucose 95 mg/dL (74-106); Lipase 62 U/L (<78); NT-proBNP 12 pg/mL (<300); Sodium 138 mmol/L (136-145); Total Protein 8.7 g/dL (6.4-8.2); Troponin I 6 ng/L (<or=76)
[2024-10-24 15:13] LABS: CREATININE 4.3 mg/dL (0.70-1.30)
--- NOTE | 2024-10-24 15:24 | DI.VRAD_ITS ---
PROCEDURE INFORMATION: Exam: XR Chest Exam date and time: 10/24/2024 2:51 PM Age: 44 years old Clinical indication: Pain; Chest pressure TECHNIQUE: Imaging protocol: Radiologic exam of the chest. Views: 2 views. COMPARISON: No relevant prior studies available. FINDINGS: Lungs: Opacity in the left lower lobe may represent atelectasis or pneumonia.. Pleural spaces: Unremarkable. No pleural effusion. No pneumothorax. Heart/Mediastinum: Unremarkable. No cardiomegaly. Bones/joints: Unremarkable. IMPRESSION: Opacity in the left lower lobe may represent atelectasis or pneumonia.. Dictated and Authenticated by: Lottie Lock MD. Orderin Tracee Vegas MD
[2024-10-24 15:45] LABS: Lab Add On Test DONE
[2024-10-24 15:59] LABS: Hemoglobin A1C 6.3 % (<5.7)
--- NOTE | 2024-10-24 15:59 | W.PM.HP.N ---
Date of service: 10/24/24 Time of Service: 15:59 Assessment and Plan Assessment and plan (1) Acute kidney injury: Status: Acute Assessment and plan: UA pending, protein/creatinine ratio pending, urine creatinine and sodium added, FENA score 0.1% renal US for tomorrow post void bladder scan with no evidence of urinary retention hold nephrotoxic agents, lisinopril CPK elevated at 1600 continue IV hydration and monitoring cpk, kidney function closely renal diet for now, no electrolyte abnormalities. (2) Shoulder pain, bilateral: Status: Acute Assessment and plan: add CRP and sed rate ? consider polymyalgia rheumatica or vasculitis CPK elevated at 1600 apap and or lidocaine patch (3) Hypertension: Status: Chronic Assessment and plan: will need to hold lisinopril monitor blood pressure closely discussed with DR Hernandez History of Present Illness Narrative: patient presents to the ED with c/o neck and shoulder pain. this has been present for several weeks and worse with movement, initially he attributed to musculoskeletal pain from lifting boxes over his head at work. He saw his pcp who put him on lyrica which as has taken in the past for low back pain with good effect. he states the lyrica did not help and he reached the point he was becoming less tolerant of the pain so prompted the ED visit today. states I can't afford to be out of work, and it hurts too much to work. He denies taking any over the counter medication for the pain. he states he take ibuprofen 800 mg occasionally for headache, and takes less than 1 tab weekly on average. He has not taking it for his shoulder pain. He was given toradol for his symptoms and routine labs obtained with findings of acute kidney injury with creatinine of 4.3 and BUN 67 which is up from last month 1.1 and 27. no recent medication changes. no recent illness with GI losses, no nausea, vomiting or diarrhea. reports good oral intake, normal urinary output. denies any similar history. he received 2 liter of LR in the ED and hospitalist requested to observe for further evaluation and lab monitoring. pending at time of admission is UA and bladder scan which showed no evidence of urinary retention. Review of Systems All systems reviewed & are unremarkable except as noted in HPI and below PFSH All Active Problems (Updated 10/24/24 @ 16:20 by Radha Barrios NP) Hypertension (Chronic) Acute kidney injury (Acute) Shoulder pain, bilateral (Acute) Neck pain (Acute) Social History Smoking risk assessment performed?: No Housing: other Meds Allergies and Home Medications Allergies Allergy/AdvReac Type Severity Reaction Status Date / Time No Known Allergies Allergy Unverified 10/24/24 13:58 Home Medications ?Medication ?Instructions ?Recorded ?Confirmed ?Type lisinopril 10 mg tablet 10 mg PO DAILY 10/24/24 10/24/24 History pregabalin 150 mg capsule 150 mg PO BID 10/24/24 10/24/24 History rosuvastatin 10 mg tablet 10 mg PO DAILY 10/24/24 10/24/24 History sertraline 100 mg tablet 100 mg PO DAILY 10/24/24 10/24/24 History Exam Narrative Exam Narrative: very pleasant male of stated age, no acute distress, head atraumatic normocephalic, eyes non icteric non injected. oral mucosa moist, neck full range of motion. resp even and unlabored, CV RRR, abdomen obese soft non tender. moves all extremities equally, neuro awake alert oriented no focal deficits, appropriate mood and affect. skin no rashes or lesions Results Labs 10/24/24 14:27 10/24/24 14:27 Labs: Laboratory Results - last 24 hr 10/24/24 10/24/24 10/24/24 14:27 15:18 15:18 WBC 11.02 H RBC 4.89 Hgb 14.2 Hct 43.7 MCV 89 MCH 29.0 MCHC 32.5 RDW 13.4 Plt Count 248 MPV 10.4 Immature Gran % 0.4 Neutrophils % 65.6 Lymphocytes % 24.8 Monocytes % 7.9 Eosinophils % 0.8 Basophils % 0.5 Nucleated RBC % 0.0 Absolute Neutrophils 7.23 H Absolute Lymphocytes 2.73 Absolute Monocytes 0.87 H Absolute Eosinophils 0.09 Absolute Basophils 0.06 Sodium 138 Potassium 5.0 Chloride 99 Carbon Dioxide 26.4 Anion Gap 12.6 H BUN 67 H Creatinine 4.3 H* Est GFR (CKD-EPI 2020) 16.43 Glucose 95 Calcium 9.1 Total Bilirubin 0.8 AST 54 H ALT 47 Alkaline Phosphatase 73 Troponin I 6 NT-Pro-B Natriuret Pep 12 Total Protein 8.7 H Albumin 4.0 Lipase 62 Add-On Test Request Cancelled DONE Last Vital Signs Temp 35.4 C L 10/24/24 13:53 Pulse 112 H 10/24/24 13:53 Resp 20 10/24/24 13:53 BP 103/49 L 10/24/24 13:53 Pulse Ox 100 10/24/24 13:53 PAWSS Have you Been Recently Intoxicated or Drunk Within the Last 30 days?: No Have you Ever Experienced Previous Episodes of Alcohol Withdrawal?: No Have you ever Experienced Withdrawal Seizures?: No Have you ever Experienced Delirium Tremens(DT)s?: No Have you ever undergone Alcohol Rehabilitation Treatment (i.e, inpt ot outpatient treatment programs)?: No Have you ever Experienced Blackouts?: No Have you ever Combined Alcohol with other Downers within the last 90 days?: No Have you ever Combined Alcohol with any other Substance of Abuse during the last 90 days?: No Positive Blood Alcohol level on Presentation? [PCS.BAL]: No Evidence of Increased Autonomic Activity (i.e. HR>120, tremor, sweating, agitation, nausea)?: No Result: 0 Time Spent Time spent with Patient: 55-74 minutes Time was spent: preparing to see the patient(eg.review tests), obtaining and/or reviewing separately otained hiistory, ordering medications,tests, procedures, indepentently interpreting results and counseling the patient
[2024-10-24] MEDS: Lactated Ringers 1,000 ML 1000 ML IV ×2 (16:05→17:30)
[2024-10-24 16:10] LABS: Creatine Kinase 1616 U/L (39-308)
[2024-10-24 16:19] LABS: Bilirubin Small (Negative); Blood Trace-intact (Negative); Clarity Clear (Clear); Glucose Negative (Negative); Ketones Negative (Negative); Leukocyte Esterase Negative (Negative); Nitrite Negative (Negative); Specific Gravity 1.025 (1.005-1.025); Urobilinogen 0.2 mg/dL (Up to 0.2)
[2024-10-24 16:29] LABS: Sodium, Urine 16 mmol/L
[2024-10-24 16:30] LABS: PROTEIN 40.6 mg/dL; Prot/Crea Ur Ratio 0.12
[2024-10-24 16:30] LABS: C-Reactive Protein 3.01 mg/dL (<or=0.5)
[2024-10-24 16:37] LABS: Troponin I 6 ng/L (<or=76)
[2024-10-24 16:39] LABS: ESR 27 mm/hr (0-15)
[2024-10-24 16:43] LABS: *AMPHETAMINES SCREEN URINE Negative (Negative); *BARBITURATES SCREEN URINE Negative (Negative); *BENZODIAZEPINES SCREEN URINE Negative (Negative); Cannabinoids THC Negative (Negative); Cocaine Screen,Urine Negative (Negative); METHADONE URINE SCREEN Negative (Negative); OPIATES URINE SCREEN Negative (Negative)
[2024-10-24 16:47] LABS: Tricyclic Antidepressants Negative (Negative)
[2024-10-24 16:58] LABS: Bacteria Negative HPF (Negative); C & S Indicated? No; Casts Negative LPF (Negative); Crystals Negative HPF (Negative); Epithelial Cells Few HPF (Negative); Mucus Negative (Negative); RBC 0-2 HPF (0-2); WBC 0-2 HPF (0-5)
--- NOTE | 2024-10-24 17:15 | W.PC.ACHO ---
Registration Status: Primary Language: Preferred Language: ED Information & Data Chief Complaint Nk/Back Pain 10/24/24 14:04 Other Complaint Dizzy/Sync 10/24/24 13:53 Triage Note Reports increasing neck pain 10/24/24 13:53 radiating down to arms along with episodes of dizziness especially during work. PT states these symptoms have been increasing over the past several weeks. Most Recent Vital Signs Temperature 36.5 C 10/24/24 16:46 Pulse 98 H 10/24/24 16:46 Pulse Rhythm Regular 10/24/24 16:46 Pulse 97 H 10/24/24 15:30 Respiratory Rate 18 10/24/24 16:46 Respiratory Effort Normal 10/24/24 16:46 Respiratory Depth Shallow 10/24/24 16:46 Respiratory Pattern Normal 10/24/24 16:46 Blood Pressure 92/76 L 10/24/24 16:46 Blood Pressure Mean 68 10/24/24 15:30 Blood Pressure Position Sitting 10/24/24 13:53 Pulse Oximetry 97 10/24/24 16:46 Oxygen Delivery Method Room Air 10/24/24 16:46 Oxygen Flow Rate 0 10/24/24 16:46 Pain Level 7 10/24/24 16:46 Allergies No Known Allergies Allergy (Unverified 10/24/24 13:58) IV IV Catheter Type [Left Saline Lock Antecubital] IV Catheter Gauge [Left 20 Antecubital] Diet Orders Category Date Time Status Renal [DIET] Nutrition 10/24/24 Dinner Active Diagnostics 10/24/24 10/24/24 10/24/24 Range/Units 16:21 16:12 15:42 WBC (4.4-10.8) 10^3/uL RBC (4.36-5.78) 10^6/uL Hgb (13.5-17.5) g/dL Hct (40.0-50.0) % MCV (80-95) fL MCH (27.0-33.0) pg MCHC (32.0-36.0) % RDW (11.8-14.1) % Plt Count (130-400) 10^3/uL MPV (8.0-11.0) fL Immature Gran % % Neutrophils % % Lymphocytes % % Monocytes % % Eosinophils % % Basophils % % Nucleated RBC % (0.0-0.3) % Absolute Neutrophils (1.2-6.7) 10^3/uL Absolute Lymphocytes (1.2-3.4) 10^3/uL Absolute Monocytes (0.1-0.8) 10^3/uL Absolute Eosinophils (0.0-0.7) 10^3/uL Absolute Basophils (0.0-0.2) 10^3/uL ESR 27 H (0-15) mm/hr Sodium (136-145) mmol/L Potassium (3.5-5.1) mmol/L Chloride (98-107) mmol/L Carbon Dioxide (21.0-32.0) mmol/L Anion Gap (3-11) mmol/L BUN (7-18) mg/dL Creatinine (0.70-1.30) mg/dL Est GFR (CKD-EPI 2020) (mL/min/1.73m2) Glucose (74-106) mg/dL Hemoglobin A1c (<5.7) % Calcium (8.5-10.1) mg/dL Total Bilirubin (0.2-1.0) mg/dL AST (15-37) U/L ALT (16-63) U/L Alkaline Phosphatase (46-116) U/L Creatine Kinase (39-308) U/L Troponin I 6 (<or=76) ng/L C-Reactive Protein 3.01 H (<or=0.5) mg/dL NT-Pro-B Natriuret Pep (<300) pg/mL Total Protein (6.4-8.2) g/dL Albumin (3.4-5.0) g/dL Lipase (<78) U/L Urine Color (Yellow) Urine Clarity (Clear) Urine pH (5-8) Ur Specific [place] (1.005-1.025) Urine Protein (Neg-Trace) mg/dL Urine Ketones (Negative) mg/dL Urine Blood (Negative) Urine Nitrite (Negative) Urine Bilirubin (Negative) Urine Urobilinogen (Up to 0.2) mg/dL Ur Leukocyte Esterase (Negative) Urine RBC (0-2) HPF Urine WBC (0-5) HPF Ur Epithelial Cells (Negative) HPF Urine Crystals (Negative) HPF Urine Bacteria (Negative) HPF Urine Casts (Negative) LPF Urine Mucus (Negative) Ur Culture Indicated? Ur Random Creatinine 334.33 mg/dL U Random Total Protein 40.6 mg/dL U Reyno Prot/Creat Ratio 0.12 Ur Random Sodium 16 mmol/L Urine Glucose Negative (Negative) mg/dL Urine Opiates Screen Negative (Negative) Urine Methadone Screen Negative (Negative) Ur Barbiturates Screen Negative (Negative) Ur Tricyclics Screen Negative (Negative) Ur Amphetamines Screen Negative (Negative) U Benzodiazepines Scrn Negative (Negative) Urine Cocaine Screen Negative (Negative) Ur THC Screen Negative (Negative) Add-On Test Request 10/24/24 10/24/24 10/24/24 Range/Units 15:42 15:18 15:18 WBC (4.4-10.8) 10^3/uL RBC (4.36-5.78) 10^6/uL Hgb (13.5-17.5) g/dL Hct (40.0-50.0) % MCV (80-95) fL MCH (27.0-33.0) pg MCHC (32.0-36.0) % RDW (11.8-14.1) % Plt Count (130-400) 10^3/uL MPV (8.0-11.0) fL Immature Gran % % Neutrophils % % Lymphocytes % % Monocytes % % Eosinophils % % Basophils % % Nucleated RBC % (0.0-0.3) % Absolute Neutrophils (1.2-6.7) 10^3/uL Absolute Lymphocytes (1.2-3.4) 10^3/uL Absolute Monocytes (0.1-0.8) 10^3/uL Absolute Eosinophils (0.0-0.7) 10^3/uL Absolute Basophils (0.0-0.2) 10^3/uL ESR (0-15) mm/hr Sodium (136-145) mmol/L Potassium (3.5-5.1) mmol/L Chloride (98-107) mmol/L Carbon Dioxide (21.0-32.0) mmol/L Anion Gap (3-11) mmol/L BUN (7-18) mg/dL Creatinine (0.70-1.30) mg/dL Est GFR (CKD-EPI 2020) (mL/min/1.73m2) Glucose (74-106) mg/dL Hemoglobin A1c (<5.7) % Calcium (8.5-10.1) mg/dL Total Bilirubin (0.2-1.0) mg/dL AST (15-37) U/L ALT (16-63) U/L Alkaline Phosphatase (46-116) U/L Creatine Kinase (39-308) U/L Troponin I (<or=76) ng/L C-Reactive Protein (<or=0.5) mg/dL NT-Pro-B Natriuret Pep (<300) pg/mL Total Protein (6.4-8.2) g/dL Albumin (3.4-5.0) g/dL Lipase (<78) U/L Urine Color Yellow (Yellow) Urine Clarity Clear (Clear) Urine pH 5.0 (5-8) Ur Specific [place] 1.025 (1.005-1.025) Urine Protein 30 H (Neg-Trace) mg/dL Urine Ketones Negative (Negative) mg/dL Urine Blood Trace-intact H (Negative) Urine Nitrite Negative (Negative) Urine Bilirubin Small H (Negative) Urine Urobilinogen 0.2 (Up to 0.2) mg/dL Ur Leukocyte Esterase Negative (Negative) Urine RBC 0-2 (0-2) HPF Urine WBC 0-2 (0-5) HPF Ur Epithelial Cells Few (Negative) HPF Urine Crystals Negative (Negative) HPF Urine Bacteria Negative (Negative) HPF Urine Casts Negative (Negative) LPF Urine Mucus Negative (Negative) Ur Culture Indicated? No Ur Random Creatinine 335.54 mg/dL U Random Total Protein mg/dL U Reyno Prot/Creat Ratio Ur Random Sodium mmol/L Urine Glucose (Negative) mg/dL Urine Opiates Screen (Negative) Urine Methadone Screen (Negative) Ur Barbiturates Screen (Negative) Ur Tricyclics Screen (Negative) Ur Amphetamines Screen (Negative) U Benzodiazepines Scrn (Negative) Urine Cocaine Screen (Negative) Ur THC Screen (Negative) Add-On Test Request DONE Cancelled 10/24/24 Range/Units 14:27 WBC 11.02 H (4.4-10.8) 10^3/uL RBC 4.89 (4.36-5.78) 10^6/uL Hgb 14.2 (13.5-17.5) g/dL Hct 43.7 (40.0-50.0) % MCV 89 (80-95) fL MCH 29.0 (27.0-33.0) pg MCHC 32.5 (32.0-36.0) % RDW 13.4 (11.8-14.1) % Plt Count 248 (130-400) 10^3/uL MPV 10.4 (8.0-11.0) fL Immature Gran % 0.4 % Neutrophils % 65.6 % Lymphocytes % 24.8 % Monocytes % 7.9 % Eosinophils % 0.8 % Basophils % 0.5 % Nucleated RBC % 0.0 (0.0-0.3) % Absolute Neutrophils 7.23 H (1.2-6.7) 10^3/uL Absolute Lymphocytes 2.73 (1.2-3.4) 10^3/uL Absolute Monocytes 0.87 H (0.1-0.8) 10^3/uL Absolute Eosinophils 0.09 (0.0-0.7) 10^3/uL Absolute Basophils 0.06 (0.0-0.2) 10^3/uL ESR (0-15) mm/hr Sodium 138 (136-145) mmol/L Potassium 5.0 (3.5-5.1) mmol/L Chloride 99 (98-107) mmol/L Carbon Dioxide 26.4 (21.0-32.0) mmol/L Anion Gap 12.6 H (3-11) mmol/L BUN 67 H (7-18) mg/dL Creatinine 4.3 H* (0.70-1.30) mg/dL Est GFR (CKD-EPI 2020) 16.43 (mL/min/1.73m2) Glucose 95 (74-106) mg/dL Hemoglobin A1c 6.3 H (<5.7) % Calcium 9.1 (8.5-10.1) mg/dL Total Bilirubin 0.8 (0.2-1.0) mg/dL AST 54 H (15-37) U/L ALT 47 (16-63) U/L Alkaline Phosphatase 73 (46-116) U/L Creatine Kinase 1616 H (39-308) U/L Troponin I 6 (<or=76) ng/L C-Reactive Protein (<or=0.5) mg/dL NT-Pro-B Natriuret Pep 12 (<300) pg/mL Total Protein 8.7 H (6.4-8.2) g/dL Albumin 4.0 (3.4-5.0) g/dL Lipase 62 (<78) U/L Urine Color (Yellow) Urine Clarity (Clear) Urine pH (5-8) Ur Specific [place] (1.005-1.025) Urine Protein (Neg-Trace) mg/dL Urine Ketones (Negative) mg/dL Urine Blood (Negative) Urine Nitrite (Negative) Urine Bilirubin (Negative) Urine Urobilinogen (Up to 0.2) mg/dL Ur Leukocyte Esterase (Negative) Urine RBC (0-2) HPF Urine WBC (0-5) HPF Ur Epithelial Cells (Negative) HPF Urine Crystals (Negative) HPF Urine Bacteria (Negative) HPF Urine Casts (Negative) LPF Urine Mucus (Negative) Ur Culture Indicated? Ur Random Creatinine mg/dL U Random Total Protein mg/dL U Reyno Prot/Creat Ratio Ur Random Sodium mmol/L Urine Glucose (Negative) mg/dL Urine Opiates Screen (Negative) Urine Methadone Screen (Negative) Ur Barbiturates Screen (Negative) Ur Tricyclics Screen (Negative) Ur Amphetamines Screen (Negative) U Benzodiazepines Scrn (Negative) Urine Cocaine Screen (Negative) Ur THC Screen (Negative) Add-On Test Request Intake and Output - 24 Hour Total 10/24/24 13:48 thru 10/24/24 17:10 Intake Total 10 Balance 10 Weight 184.612 kg Intake: IV 10 Other: Urine Appearance Clear Comment PVR Stool Size Large Stool Characteristics Formed Falls Risk Assessment History of Falls No History 10/24/24 16:46 Contributing Factors No Factors 10/24/24 16:46 Ambulatory Aids Independent 10/24/24 16:46 Tubes/Lines None 10/24/24 16:46 Gait Evaluation No gait disturbance 10/24/24 16:46 Cognition Cognitive impairment 10/24/24 16:46 Fall Total Score 15 10/24/24 16:46 Level of Risk Standard/Low Risk 10/24/24 16:46 Problems (Last Reviewed 10/24/24 @ 14:07 by Ascencion Easley MD) Hypertension (Chronic) Acute kidney injury (Acute) Shoulder pain, bilateral (Acute) v v v v v v v v v Sending and/or Receiving Nurses: Please use comment section below to note any information pertinent to the patient hand-off not included above. Information / Comments: Report received from: Catarina Rn at 16:32. Pt came to the floor in a wheelchair, accompanied by his mother
[2024-10-24] MEDS: Lactated Ringers 500 ML 1000 ML IV (18:18)
[2024-10-24] MEDS: Lidocaine 5% Patch 2 PATCH TP (19:05)
[2024-10-24 19:28] LABS: Anion Gap 10.9 mmol/L (3-11); BUN 67 mg/dL (7-18); CO2 26.1 mmol/L (21.0-32.0); CREATININE 3.5 mg/dL (0.70-1.30); Calcium 8.5 mg/dL (8.5-10.1); Chloride 101 mmol/L (98-107); Estimated GFR 21.04 (mL/min/1.73m2); Glucose 116 mg/dL (74-106); Potassium 3.9 mmol/L (3.5-5.1); Sodium 138 mmol/L (136-145)
[2024-10-24 20:05] LABS: Creatine Kinase 1279 U/L (39-308)
[2024-10-24] MEDS: Normal Saline Flush 10 ML SYR IVP (20:21)
[2024-10-24] MEDS: Lactated Ringers 1,000 ML 200 ML IV (21:19)
--- NOTE | 2024-10-25 | DI.US_ITS ---
Exam(s) US RENAL EXAM: US RENAL CLINICAL HISTORY: acute renal injury TECHNIQUE: Ultrasound of both kidneys performed using standard protocol. COMPARISON: No exams were available for comparison FINDINGS: RIGHT KIDNEY: Measures 13.4 cm in length. No cysts evident. Normal cortical thickness and corticomedullary differen tiation .No solid masses No intrarenal calculi nor hydronephrosis. LEFT KIDNEY: Measures 10.4 cm in length. No cysts evident. Normal cortical thickness and corticomedullary differe ntiaion. No solids masses. No intrarenal calculi nor hydonephrosis. URINARY BLADDER: Prevoid volume is 276 cc Postvoid volume is 0 cc No evidence of bladder mass nor diverticuli. Ureterovesical jets: Both not able to be identified. IMPRESSION: 1. Mild size discrepancy by no significant focal ultrasound findings in the kidneys. 2. Both ureterovesical jets in the bladder were not able to be visualized. However, there does not appear to be evidence of hydronephrosis in either kidney. 3. No significant postvoid residual volume in the urinary bladder. DATA REPOSITORY:
[2024-10-25] MEDS: Lactated Ringers 1,000 ML 200 ML IV (02:21)
[2024-10-25 06:25] LABS: Abs Immature Grans 0.02 10^3/uL (0.0-0.06); Absolute Basophil Count 0.04 10^3/uL (0.0-0.2); Absolute Eosinophil Count 0.07 10^3/uL (0.0-0.7); Absolute Lymphocyte Count 1.89 10^3/uL (1.2-3.4); Absolute Monocyte Count 0.54 10^3/uL (0.1-0.8); Absolute Neutrophil Count 3.59 10^3/uL (1.2-6.7); Basophils % 0.7 %; Eosinophils % 1.1 %; HCT 39.3 % (40.0-50.0); HGB 12.9 g/dL (13.5-17.5); Immature Grans % 0.3 %; Lymphocytes % 30.7 %; MCH 29.5 pg (27.0-33.0); MCHC 32.8 % (32.0-36.0); MCV 90 fL (80-95); MPV 10.4 fL (8.0-11.0); Monocytes % 8.8 %; Neutrophils % 58.4 %; Platelet Count 205 10^3/uL (130-400); RBC 4.37 10^6/uL (4.36-5.78); RDW 13.4 % (11.8-14.1); RDW-SD 44.1 fL; WBC 6.15 10^3/uL (4.4-10.8)
[2024-10-25 06:36] LABS: Anion Gap 6.2 mmol/L (3-11); BUN 59 mg/dL (7-18); CO2 28.8 mmol/L (21.0-32.0); CREATININE 2.4 mg/dL (0.70-1.30); Calcium 8.5 mg/dL (8.5-10.1); Chloride 103 mmol/L (98-107); Estimated GFR 33.08 (mL/min/1.73m2); Glucose 129 mg/dL (74-106); Potassium 4.8 mmol/L (3.5-5.1); Sodium 138 mmol/L (136-145)
[2024-10-25 07:45] VITALS: BP 123/68; PULSE 87; RESP 20; TEMP 36.1; O2SAT 95
[2024-10-25] MEDS: Sertraline 100 MG TAB PO (08:29)
[2024-10-25] MEDS: Rosuvastatin 10 MG TAB PO (08:30)
[2024-10-25] MEDS: Normal Saline Flush 10 ML SYR IVP (08:32)
[2024-10-25] MEDS: Patch Removal 1 EACH TP (09:24)
[2024-10-25 11:29] LABS: Lab Add On Test DONE
--- NOTE | 2024-10-25 11:29 | PHA.REVIEW2 ---
Pharmacy Admission Review Admission Clinical Review Admission Pharmacy Review: Acute kidney injury (Acute) Shoulder pain, bilateral (Acute) No Known Allergies Allergy (Unverified 10/24/24 13:58) Resuscitation Status Full Code Height 5 ft 9 in Weight 184.612 kg Comments Comments/Follow Ups: Follow up: DVT prophylaxis and home med Pharmacy Admission Review Renal Dosing Renal Dosing: BUN 59 mg/dL (7-18) H 10/25/24 06:00 Creatinine 2.4 mg/dL (0.70-1.30) H D 10/25/24 06:00 Medications needing adjustments: Reviewed (CrCl 63.92 mL/min, BUN decreased from 67 and SCr decreased from 3.5) List of meds needing interventions: Current medications are okay Anticoagulation Anticoagulation: Hgb 12.9 g/dL (13.5-17.5) L 10/25/24 06:00 Hct 39.3 % (40.0-50.0) L 10/25/24 06:00 Plt Count 205 10^3/uL (130-400) 10/25/24 06:00 Creatinine 2.4 mg/dL (0.70-1.30) H D 10/25/24 06:00 DVT Prophylaxis: Reviewed (None ordered at this time, per provider patient likely being discharged today. If not will reach out to provider to see if they want any ordered.) Relevant Labs Relevant Labs: ESR 27 mm/hr (0-15) H 10/24/24 16:21 Sodium 138 mmol/L (136-145) 10/25/24 06:00 Potassium 4.8 mmol/L (3.5-5.1) 10/25/24 06:00 Chloride 103 mmol/L (98-107) 10/25/24 06:00 C-Reactive Protein 3.01 mg/dL (<or=0.5) H 10/24/24 16:12 Electrolytes, C-Reactive P, ESR: Reviewed (WBC decreased from 11.02 to 6.15) DM Control DM Control: Glucose 129 mg/dL (74-106) H 10/25/24 06:00 Hemoglobin A1c 6.3 % (<5.7) H 10/24/24 14:27 DM Control: Reviewed Insulin Dosing, Diabetic Medication: No diagnosis of diabetes in patients chart Cardiac Review Cardiac Review: Troponin I 6 ng/L (<or=76) 10/24/24 16:12 NT-Pro-B Natriuret Pep 12 pg/mL (<300) 10/24/24 14:27 BP, HR, EF%: Reviewed (VS WNL) QTc Review QTc: Reviewed (431 from 10/24/24) IV to PO Switch IV Medications: Reviewed Home Meds Home Med List reviewed: Reviewed Relevent Home Meds Not ordered & why?: lisinopril (on hold per H+P) and Lyrica Will reach out to provider about Lyrica if patient is not discharged today Current Meds Current Medication Order Review: Intervened Comments: Changed IV ED access order Pharmacy Antibiotic Review Relevant Labs: Relevant Labs 10/24/24 16:12 C-Reactive Protein 3.01 H Comments Comments/Follow Ups: Follow up: DVT prophylaxis and home med
[2024-10-25 11:44] LABS: Creatine Kinase 991 U/L (39-308)
--- NOTE | 2024-10-25 11:44 | W.PM.DS.N ---
Date of service: 10/25/24 Time of Service: 12:16 DS: Diagnosis Discharge Diagnosis (1) Acute kidney injury: Status: Acute (2) Shoulder pain, bilateral: Status: Acute (3) Hypertension: Status: Chronic (4) Rhabdomyolysis: Status: Acute Discharge Plan Disposition Patient Disposition: Home Condition: Improving Discharge Details Reason For Visit: Acute Kidney Injury Admit Date/Time: 10/24/24 15:59 Admit Provider: Satinder Hernandez Attending Provider: Satinder Hernandez Primary Care Provider: Rashaad London Hospital Course Hospital Course: This is a 44-year-old male patient past medical history significant for hypertension dyslipidemia presents to the emergency department for evaluation of bilateral shoulder pain he attributes to lifting boxes at work. His pain has been ongoing for several weeks. His PCP did put him on Lyrica which she has tried in the past before for back pain with good effect. He states the Lyrica has not been helpful for his symptoms and he was concerned about attendance at work secondary to his pain so he presented here for evaluation yesterday. On his workup he was found to have an elevated CPK at 1600 and with acute renal injury with a creatinine up to 4.3 from a creatinine 2 weeks ago of 1.1. He has no history of renal insufficiency. No report of GI losses. He denies any NSAID use. The only new medication was Lyrica which was started several weeks ago. Denies any trauma injury. Denies any similar history he had no evidence of postobstructive uropathy with negative bladder scan postvoid. Fena score 0.1%. Inflammatory markers obtained and CRP 3.01 and ESR 27 making polymyalgia rheumatica rheumatica less likely. He was given IV fluids with improvement in his CPK and kidney function. He is eating and drinking and voiding without. He is stable for discharge to home. It will be recommended to hold pregabalin, rosuvastatin, lisinopril on discharge. Lab recheck ordered for October 27. He should follow-up with his primary care provider for further evaluation of his shoulder pain if it does not improve and monitoring of lab specifically kidney functions and CPK. He is being discharged home with no new services. He should have close outpatient follow-up with his primary care provider or return here sooner for new or worsening symptoms Discussed with DR Hernandez Home Meds and New Rx's Prescriptions: Continued sertraline 100 mg tablet 100 mg PO DAILY Patient Comments: TAKE 1 TABLET BY MOUTH EVERY DAY Held lisinopril 10 mg tablet 10 mg PO DAILY Hold Instructions: until discussed with pcp Patient Comments: TAKE 1 TABLET BY MOUTH EVERY DAY rosuvastatin 10 mg tablet 10 mg PO DAILY Hold Instructions: until discussed with pcp Patient Comments: TAKE 1 TABLET BY MOUTH EVERY DAY pregabalin 150 mg capsule 150 mg PO BID Hold Instructions: until discussed with pcp Patient Comments: TAKE 1 CAPSULE BY MOUTH TWICE DAILY Discharge Instructions Instructions: Rhabdomyolysis, Acute kidney injury Additional Instructions: Your evaluation did not show any reason for your shoulder pain. When you think this is muscle skeletal. You can try [id number] acetaminophen 650 mg 4 times daily if needed for the pain. You can also use lidocaine patch if you find helpful you can pick this up [id number] please ask pharmacist for assistance if needed. Take as directed. You can also try heat or ice to affected area. You have been provided a work note that will allow you rest. When lifting boxes at work as needed. On your workup however we did note that you showed evidence of kidney injury with elevated muscle enzymes in your bloodstream. It is not clear what is causing this. Your labs are improving after receiving IV hydration. Continue to push fluids drinking at least 8 or more glasses of fluids daily to stay well-hydrated. You should hold your Lyrica at this point as you did not find it helpful for your shoulder pain. Additionally we will recommend that you hold your rosuvastatin until your lab values have improved and you have discussed with your primary care provider. Also placed on hold as your lisinopril which should not be used with kidney injury until reevaluated and instructed by your doctor. You have been ordered to have follow-up lab work later this week. You should follow-up with your primary care provider within 1 week to review this lab work and for further evaluation of your shoulder pain and further medication recommendations. Return here sooner for new or worsening symptoms Stand Alone Forms: Nursing Discharge Form Referrals: Rashaad London [Primary Care Provider] - 1 week (Called PC and they will call pt back with appointment ) Activity:: Activity as Tolerated Equipment/Supplies:: No Equipment Needed Diet:: As Tolerated Discharge Orders Discharge Orders: Discharge Order (Routine); Ordered 10/25/24 Ordered By: Radha Barrios Other Ambulatory Orders: Basic Metabolic Panel (Routine) Timeframe: 2 Days Facility: [facility] - Location: Laboratory Outpatient - [facility] Ordered By: Radha Barrios Complete Blood Count w/Diff (Routine) Timeframe: 2 Days Facility: [facility] - Location: Laboratory Outpatient - [facility] Ordered By: Radha Barrios Creatine Kinase (Routine) Timeframe: 2 Days Facility: [facility] - Location: Laboratory Outpatient - [facility] Ordered By: Radha Barrios DS: Summary Time Spent with Patient providing and/or coordinating discharge services: Greater than 30 minutes Status at Discharge Functional status at discharge: independent ambulation Overall status at discharge: patient is progressing back to baseline Mental Status: mental status grossly normal Speech and Movement: speech and movement normal Mood: congruent mood Affect: normal affect Quality:SDOH Health Related Social Needs: No Data to Display Exam Narrative Exam Narrative: very pleasant male of stated age, no acute distress, head atraumatic normocephalic, eyes non icteric non injected. oral mucosa moist, neck full range of motion. resp even and unlabored, CV RRR, abdomen obese soft non tender. moves all extremities equally, neuro awake alert oriented no focal deficits, appropriate mood and affect. skin no rashes or lesions Psych Mental Status: mental status grossly normal Speech and Movement: speech and movement normal Mood: congruent mood Affect: normal affect DS: Data Vitals/I&O Vitals and I&O: Vital Signs Temperature 36.1 C L 10/25/24 07:45 Temperature Source Temporal Artery Scan 10/25/24 07:45 Pulse 87 10/25/24 07:45 Pulse Rhythm Regular 10/24/24 16:46 Pulse 97 H 10/24/24 15:30 Respiratory Rate 20 10/25/24 07:45 Respiratory Effort Normal 10/24/24 16:46 Respiratory Depth Shallow 10/24/24 16:46 Respiratory Pattern Normal 10/24/24 16:46 Blood Pressure 123/68 10/25/24 07:45 Blood Pressure Mean 68 10/24/24 15:30 Blood Pressure Position Sitting 10/24/24 13:53 Pulse Oximetry 95 10/25/24 07:45 Oxygen Delivery Method Room Air 10/25/24 07:45 Oxygen Flow Rate 0 10/25/24 07:45 Pain Level 0 10/25/24 07:45 Comment RN notified 10/25/24 07:45 Intake & Output 0410/24/24 10/25/24 11:59 23:59 11:59 Intake Total 2750 / 2750 2009 Output Total 275 / 275 Balance 2475 / 2475 2009 Weight 184.612 kg Intake: IV 2510 / 2510 2009 Oral 240 / 240 Output: Urine 275 / 275 Other: Urine Color Yellow Yellow Urine Appearance Clear Clear Urine Odor Normal Comment voids independently in toilet patient voided in toilet. Stool Size Large Stool Characteristics Formed Data Completed and Pending Labs on day of discharge: Labs from last 24 hours 10/25/24 10/25/24 10/24/24 06:19 06:00 18:52 WBC 6.15 RBC 4.37 Hgb 12.9 L Hct 39.3 L MCV 90 MCH 29.5 MCHC 32.8 RDW 13.4 Plt Count 205 MPV 10.4 Immature Gran % 0.3 Neutrophils % 58.4 Lymphocytes % 30.7 Monocytes % 8.8 Eosinophils % 1.1 Basophils % 0.7 Nucleated RBC % 0.0 Absolute Neutrophils 3.59 Absolute Lymphocytes 1.89 Absolute Monocytes 0.54 Absolute Eosinophils 0.07 Absolute Basophils 0.04 ESR Sodium 138 138 Potassium 4.8 3.9 D Chloride 103 101 Carbon Dioxide 28.8 26.1 Anion Gap 6.2 10.9 BUN 59 H 67 H Creatinine 2.4 H D 3.5 H Est GFR (CKD-EPI 2020) 33.08 21.04 Glucose 129 H 116 H Hemoglobin A1c Calcium 8.5 8.5 Total Bilirubin AST ALT Alkaline Phosphatase Creatine Kinase Pending 1279 H Troponin I C-Reactive Protein NT-Pro-B Natriuret Pep Total Protein Albumin Lipase Urine Color Urine Clarity Urine pH Ur Specific [place] Urine Protein Urine Ketones Urine Blood Urine Nitrite Urine Bilirubin Urine Urobilinogen Ur Leukocyte Esterase Urine RBC Urine WBC Ur Epithelial Cells Urine Crystals Urine Bacteria Urine Casts Urine Mucus Ur Culture Indicated? Ur Random Creatinine U Random Total Protein U [place] Prot/Creat Ratio Ur Random Sodium Urine Glucose Urine Opiates Screen Urine Methadone Screen Ur Barbiturates Screen Ur Tricyclics Screen Ur Amphetamines Screen U Benzodiazepines Scrn Urine Cocaine Screen Ur THC Screen Add-On Test Request DONE 10/24/24 10/24/24 10/24/24 16:21 16:12 15:42 WBC RBC Hgb Hct MCV MCH MCHC RDW Plt Count MPV Immature Gran % Neutrophils % Lymphocytes % Monocytes % Eosinophils % Basophils % Nucleated RBC % Absolute Neutrophils Absolute Lymphocytes Absolute Monocytes Absolute Eosinophils Absolute Basophils ESR 27 H Sodium Potassium Chloride Carbon Dioxide Anion Gap BUN Creatinine Est GFR (CKD-EPI 2020) Glucose Hemoglobin A1c Calcium Total Bilirubin AST ALT Alkaline Phosphatase Creatine Kinase Troponin I 6 C-Reactive Protein 3.01 H NT-Pro-B Natriuret Pep Total Protein Albumin Lipase Urine Color Urine Clarity Urine pH Ur Specific [place] Urine Protein Urine Ketones Urine Blood Urine Nitrite Urine Bilirubin Urine Urobilinogen Ur Leukocyte Esterase Urine RBC Urine WBC Ur Epithelial Cells Urine Crystals Urine Bacteria Urine Casts Urine Mucus Ur Culture Indicated? Ur Random Creatinine 334.33 U Random Total Protein 40.6 U [place] Prot/Creat Ratio 0.12 Ur Random Sodium 16 Urine Glucose Negative Urine Opiates Screen Negative Urine Methadone Screen Negative Ur Barbiturates Screen Negative Ur Tricyclics Screen Negative Ur Amphetamines Screen Negative U Benzodiazepines Scrn Negative Urine Cocaine Screen Negative Ur THC Screen Negative Add-On Test Request 10/24/24 10/24/24 10/24/24 15:42 15:18 15:18 WBC RBC Hgb Hct MCV MCH MCHC RDW Plt Count MPV Immature Gran % Neutrophils % Lymphocytes % Monocytes % Eosinophils % Basophils % Nucleated RBC % Absolute Neutrophils Absolute Lymphocytes Absolute Monocytes Absolute Eosinophils Absolute Basophils ESR Sodium Potassium Chloride Carbon Dioxide Anion Gap BUN Creatinine Est GFR (CKD-EPI 2020) Glucose Hemoglobin A1c Calcium Total Bilirubin AST ALT Alkaline Phosphatase Creatine Kinase Troponin I C-Reactive Protein NT-Pro-B Natriuret Pep Total Protein Albumin Lipase Urine Color Yellow Urine Clarity Clear Urine pH 5.0 Ur Specific [place] 1.025 Urine Protein 30 H Urine Ketones Negative Urine Blood Trace-intact H Urine Nitrite Negative Urine Bilirubin Small H Urine Urobilinogen 0.2 Ur Leukocyte Esterase Negative Urine RBC 0-2 Urine WBC 0-2 Ur Epithelial Cells Few Urine Crystals Negative Urine Bacteria Negative Urine Casts Negative Urine Mucus Negative Ur Culture Indicated? No Ur Random Creatinine 335.54 U Random Total Protein U [place] Prot/Creat Ratio Ur Random Sodium Urine Glucose Urine Opiates Screen Urine Methadone Screen Ur Barbiturates Screen Ur Tricyclics Screen Ur Amphetamines Screen U Benzodiazepines Scrn Urine Cocaine Screen Ur THC Screen Add-On Test Request DONE Cancelled 10/24/24 14:27 WBC 11.02 H RBC 4.89 Hgb 14.2 Hct 43.7 MCV 89 MCH 29.0 MCHC 32.5 RDW 13.4 Plt Count 248 MPV 10.4 Immature Gran % 0.4 Neutrophils % 65.6 Lymphocytes % 24.8 Monocytes % 7.9 Eosinophils % 0.8 Basophils % 0.5 Nucleated RBC % 0.0 Absolute Neutrophils 7.23 H Absolute Lymphocytes 2.73 Absolute Monocytes 0.87 H Absolute Eosinophils 0.09 Absolute Basophils 0.06 ESR Sodium 138 Potassium 5.0 Chloride 99 Carbon Dioxide 26.4 Anion Gap 12.6 H BUN 67 H Creatinine 4.3 H* Est GFR (CKD-EPI 2020) 16.43 Glucose 95 Hemoglobin A1c 6.3 H Calcium 9.1 Total Bilirubin 0.8 AST 54 H ALT 47 Alkaline Phosphatase 73 Creatine Kinase 1616 H Troponin I 6 C-Reactive Protein NT-Pro-B Natriuret Pep 12 Total Protein 8.7 H Albumin 4.0 Lipase 62 Urine Color Urine Clarity Urine pH Ur Specific [place] Urine Protein Urine Ketones Urine Blood Urine Nitrite Urine Bilirubin Urine Urobilinogen Ur Leukocyte Esterase Urine RBC Urine WBC Ur Epithelial Cells Urine Crystals Urine Bacteria Urine Casts Urine Mucus Ur Culture Indicated? Ur Random Creatinine U Random Total Protein U [place] Prot/Creat Ratio Ur Random Sodium Urine Glucose Urine Opiates Screen Urine Methadone Screen Ur Barbiturates Screen Ur Tricyclics Screen Ur Amphetamines Screen U Benzodiazepines Scrn Urine Cocaine Screen Ur THC Screen Add-On Test Request PFSH All Active Problems (Updated 10/25/24 @ 12:16 by Radha Barrios NP) Rhabdomyolysis (Acute) Hypertension (Chronic) Acute kidney injury (Acute) Shoulder pain, bilateral (Acute) Neck pain (Acute) Social History Smoking risk assessment performed?: No Housing: other Time Spent with Patient Time Spent with Patient: 70-84 minutes4 Time was spent: preparing to see the patient(eg.review tests), obtaining and/or reviewing separately otained hiistory, ordering medications,tests, procedures, referring, communicating with other health memory care director, indepentently interpreting results and counseling the patient
--- NOTE | 2024-10-25 12:33 | PDOC.CMDIS ---
Date of service: 10/25/24 Time of Service: 12:33 LACE Index Scoring Tool Questions: Length of Stay (in days): 1 Was the patient admitted via the E.D.?: Yes Comorbidities: Mild Liver/Renal Disease E.D. Visits: 1 Answers: Total Score: 7 Risk of Readmission: Low Risk Care Management Discharge Plan Reason for Hospitalization: [place] Discharge Plan: Paul will be discharged this afternoon with no new services. He was admitted yesterday with elevated BUN/cr, and his levels have improved significantly, and he is ready to go home. These were incidental findings as he came in for neck and shoulder pain. Paul was given a return to work letter. He will f/u with his PCP, continue per his plan of care, and be driven home in a private vehicle. Patient/Family Education Needs: Review of discharge instructions, activity, limitations, and discuss ask me 3. SDOH Health Related Social Needs: No Data to Display
--- NOTE | 2024-10-25 12:43 | NUR.NOTE ---
Nursing Note: Reviewed documentation completed by Idris Krishnan, student GR[employer] SPECIALIST. Adelia Stubbs, MSN, RNC-OB, clinical instructor
--- NOTE | 2024-10-26 10:18 | NUR.NOTE ---
Nursing Note: Received call from patient regarding his new medication upon discharge, upon review of the chart it was noticed he was discharged from the inpatient unit. Call was transferred to the med surg nurses station
== END 2024-10-25 13:14 | disposition home or self-care (01) ==
LOC: ER 16:04 → MS 16:40
PROVIDERS: Nurse Practitioner Acute Care; Admitting Provider Family Medicine; Emergency Provider Student in an Organized Health Care Education/Training Program; PCP Physician Assistant; Visit Provider Family Medicine
DX: N17.9 Acute kidney failure, unspecified (principal); M25.511 Pain in right shoulder; M25.512 Pain in left shoulder; M54.2 Cervicalgia; R42 Dizziness and giddiness; M62.82 Rhabdomyolysis; I10 Essential (primary) hypertension; Z79.899 Other long term (current) drug therapy; E78.5 Hyperlipidemia, unspecified; E11.9 Type 2 diabetes mellitus without complications; F41.8 Other specified anxiety disorders; E66.01 Morbid (severe) obesity due to excess calories; Z68.44 Body mass index [BMI] 60.0-69.9, adult
CPT/HCPCS: 00123; 36415; 51798; 76770; 80048; 80053; 80307; 82550; 83690; 85652; 93005; 96361; 96374; 99285; 71046; 81003; 81015; 82565; 83036; 83880; 84156; 84300; 84484; 85025; 86140; 93010; 99222; 99239; G0378; J1885; J3490

== ENCOUNTER 2024-11-03 17:07 | Outpatient (REF) | payer OTHER, SELFPAY ==
[2024-11-03 21:07] LABS: ALT 43 U/L (16-63); AST 25 U/L (15-37); Albumin 4.1 g/dL (3.4-5.0); Alkaline Phosphatase 70 U/L (46-116); Anion Gap 9.5 mmol/L (3-11); BUN 17 mg/dL (7-18); Bilirubin, Total 0.5 mg/dL (0.2-1.0); CO2 27.5 mmol/L (21.0-32.0); CREATININE 1.1 mg/dL (0.70-1.30); Calcium 9.5 mg/dL (8.5-10.1); Chloride 105 mmol/L (98-107); Creatine Kinase 140 U/L (39-308); Estimated GFR 84.37 (mL/min/1.73m2); Glucose 99 mg/dL (74-106); Potassium 3.7 mmol/L (3.5-5.1); Sodium 142 mmol/L (136-145); Total Protein 8.1 g/dL (6.4-8.2)
== END 2024-11-03 17:08 | disposition home or self-care (01) ==
LOC: NCHCN 17:07
PROVIDERS: PCP Physician Assistant; Visit Provider Physician Assistant
DX: Z00.00 Encounter for general adult medical examination without abnormal findings (principal)
CPT/HCPCS: 80053; 82550